=== PATIENT | male | born 1930 | race Caucasian/White ===

== ENCOUNTER 2017-05-08 13:41 | Observation (INO) ==
[2017-05-08] MEDS ORDERED: NORVASC PO ONE (14:46)
[2017-05-08] MEDS ORDERED: LABETALOL IV ONE (16:26)
[2017-05-08 17:39] LABS: MANUAL DIFF NEEDED? NO
[2017-05-08 17:42] LABS: BASO% 0.4 % (0.0-0.8); EOS# 0.04 X1000 (0.0-0.7); EOS% 0.6 % (0.0-10.0); HEMATOCRIT 42.1 % (42.0-52.0); HEMOGLOBIN 14.3 g/dL (14.0-18.0); IMM GRAN# 0.01 X1000 (0.0-0.04); IMM GRAN% 0.1 % (0.0-0.5); LYMPH# 1.65 X1000 (1.2-3.4); LYMPH% 24.6 % (20.5-51.1); MCH 29.5 PG (27-31); MCV 86.8 FL (81-99); MONO# 0.52 X1000 (0.11-0.59); MONO% 7.8 % (1.7-9.3); MPV 9.5 FL (7.4-10.4); NEUT% 66.5 % (42.2-75.2); PLT 177 X1000 (130-400); RBC 4.85 XMIL (4.7-6.1)
[2017-05-08 18:02] LABS: AGAP 10; ALBUMIN 3.9 g/dL (3.5-5.0); ALKALINE PHOSPHATASE 133 U/L (32-122); BUN 14 mg/dL (8-22); CALCIUM 9.1 mg/dL (8.8-10.2); CHLORIDE 101 mmol/L (98-107); COSMO 268; GOT 12 U/L (10-34); GPT 7 U/L (10-44); POTASSIUM 4.3 mmol/L (3.5-5.1); SODIUM 134 mmol/L (136-145); TCO2 23 mmol/L (25-35); TOTAL PROTEIN 7.4 g/dL (6.3-8.3)
[2017-05-08] MEDS ORDERED: APRESOLINE PO PRN (21:18)
[2017-05-08] MEDS: NORVASC PO SCH (21:41)
[2017-05-09] MEDS: NORVASC PO SCH (08:37)
[2017-05-09] MEDS ORDERED: APRESOLINE PO SCH (09:00)
[2017-05-09] MEDS ORDERED: ASPIRIN PO SCH (09:15)
[2017-05-09] MEDS ORDERED: ZYRTEC PO SCH (09:15)
[2017-05-09] MEDS ORDERED: NORVASC PO SCH (09:15)
[2017-05-09 11:45] VITALS: BP 137/75
[2017-05-09] MEDS ORDERED: ZOCOR PO SCH (21:00)
== END 2017-05-09 11:55 | disposition home or self-care (01) ==
LOC: P.ED 13:41 → P.MEDSURG 19:17 → INTOOBSV 19:17
PROVIDERS: ATTEND Internal Medicine